=== PATIENT | female | born 1970 | race American Indian/Alaskan Native ===

== ENCOUNTER 2016-05-16 15:26 | Inpatient (IN) | payer MEDICARE ==
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
[2016-05-16 16:55] LABS: Basophils % (Auto) 0.4 % (0.0-1.8); Hematocrit 26.4 % (30.3-42.9); Hemoglobin 8.9 gm/dl (10.1-14.3); Mean Corpuscular HGB Conc 34 % (30-34); Mean Corpuscular Hemoglobin 28 pg (28-32); Mean Corpuscular Volume 84 fl (79-97); Platelet Count 273 K/mm3 (140-440); Red Blood Count 3.16 M/mm3 (3.65-5.03); Red Cell Distribution Width 16.5 % (13.2-15.2); White Blood Count 9.2 K/mm3 (4.5-11.0)
[2016-05-16 17:20] LABS: INR 1.01 (0.87-1.13)
[2016-05-16 17:30] LABS: Partial Thromboplastin Time 27.5 Sec. (24.2-36.6)
[2016-05-16 17:47] LABS: Alanine Aminotransferase 5 units/L (7-56); Albumin 3.2 g/dL (3.9-5); Albumin/Globulin Ratio 0.7 %; Alkaline Phosphatase 58 units/L (35-129); Anion Gap 28 mmol/L; BUN/Creatinine Ratio 4.36; Bilirubin,Total 0.3 mg/dL (0.1-1.2); Blood Urea Nitrogen 83 mg/dL (7-17); Carbon Dioxide 20 mmol/L (22-30); Chloride 92.6 mmol/L (98-107); Glucose 87 mg/dL (65-100); Sodium 137 mmol/L (137-145); Total Protein 7.5 g/dL (6.3-8.2)
[2016-05-17] MEDS ORDERED: BENADRYL IV ONE (00:59)
[2016-05-17] MEDS ORDERED: MORPHINE IV ONE (00:59)
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
[2016-05-17] MEDS ORDERED: TYLENOL PO PRN (02:05)
[2016-05-17] MEDS ORDERED: ULTRAM PO PRN ×2 (02:09→09:13)
--- NOTE | 2016-05-17 02:09 | History and Physical Report ---
History of Present Illness Chief complaint: missed dialysis History of present illness: 45 YO Female with HTN, CHF, ESRD on PD, HCV, RI, CAD S/P Stent placement presents to ED for evaluation. Pt states that she has not been able to tolerated her dialysis for the past 2 days. Pt states that she has severe abdominal pain when she attempts to do dialysis. She has been having some nausea and vomiting as well and has been unable to complete her dialysis sessions. Pt denies fever, chills, CP, Palpitations, Trauma, recent ill contacts, hematuria, urgency, back pain. Nephrology consulted in ED. ED Past Medical Hx - Past Medical History Hx Hypertension: Yes Hx Heart Attack/AMI: No Hx Congestive Heart Failure: Yes Hx Diabetes: No Hx Deep Vein Thrombosis: No Hx Liver Disease: No Hx Renal Disease: Yes (PD) Hx Sickle Cell Disease: No Hx Seizures: No Hx Asthma: No Hx COPD: No Additional medical history: HEP C,RI with Stent placement 2013,2014 - Surgical History Hx Coronary Stent: Yes Hx Pacemaker: No Hx Internal Defibrillator: No Additional Surgical History: Vas cath L chest - Social History Smoking Status: Former Smoker Substance Use Type: None Past History Past Medical History: acute RI, CAD, heart failure, hepatitis, hypertension, renal failure Past Surgical History: Other (Left chest permacath) Social history: single, lives with family. denies: smoking, alcohol abuse Family history: hypertension Medications and Allergies Allergies Allergy/AdvReac Type Severity Reaction Status Date / Time hydrocodone bitartrate Allergy Unknown Verified 02/14/14 13:22 [From Lortab] magnesium Allergy Unknown Verified 02/14/14 13:22 Penicillins Allergy Unknown Verified 02/14/14 13:22 Home Medications Medication Instructions Recorded Confirmed Last Taken Type Calcitriol [Rocaltrol] 0.5 mcg PO DAILY 10/29/14 10/29/14 10/28/14 History Calcium Acetate 667 mg PO QID 10/29/14 10/29/14 10/28/14 History Aspirin EC [Aspirin Enteric Coated 81 mg PO QDAY #30 tablet 11/11/14 Unknown Rx TAB] Carvedilol [Coreg] 3.125 mg PO DAILY #60 tablet 11/11/14 Unknown Rx Clopidogrel [Plavix] 75 mg PO DAILY #30 tablet 11/11/14 Unknown Rx Pantoprazole [Protonix TAB] 40 mg PO QDAY #30 tablet 11/11/14 Unknown Rx Sucralfate [Carafate] 1 gm PO Q6HR 30 Days 11/11/14 Unknown Rx Zolpidem [Ambien] 5 mg PO QHS PRN #5 tablet 11/11/14 Unknown Rx amLODIPine [Norvasc] 5 mg PO QDAY #30 tablet 11/11/14 Unknown Rx traMADol [Ultram 50 MG tab] 50 mg PO Q4H PRN #20 tablet 11/11/14 Unknown Rx Review of Systems All systems: negative Cardiovascular: shortness of breath Exam - Constitutional Vitals: Temp Pulse Resp BP Pulse Ox 98.6 F 59 L 18 152/116 100 05/16/16 15:46 05/16/16 15:46 05/16/16 15:46 05/16/16 15:46 05/16/16 15:46 General appearance: Present: mild distress - EENT Eyes: Present: PERRL ENT: hearing intact, clear oral mucosa - Neck Neck: Present: supple, normal ROM - Respiratory Respiratory effort: normal Respiratory: bilateral: diminished - Cardiovascular Heart Sounds: Present: S1 & S2. Absent: rub, click - Extremities Extremities: pulses symmetrical, No edema Extremity abnormal: edema Peripheral Pulses: within normal limits - Abdominal General gastrointestinal: Present: soft, non-tender, non-distended, normal bowel sounds Female genitourinary: Present: normal - Integumentary Integumentary: Present: clear, warm, dry - Musculoskeletal Musculoskeletal: gait normal, strength equal bilaterally - Psychiatric Psychiatric: appropriate mood/affect, intact judgment & insight - Neurologic Neurologic: CNII-XII intact, moves all extremities Results - Labs CBC & Chem 7: 05/16/16 16:39 05/16/16 16:33 Labs: Abnormal lab results 05/16/16 05/16/16 Range/Units 16:33 16:39 RBC 3.16 L (3.65-5.03) M/mm3 Hgb 8.9 L (10.1-14.3) gm/dl Hct 26.4 L (30.3-42.9) % RDW 16.5 H (13.2-15.2) % Harvey % (Auto) 8.4 H (0.0-7.3) % Chloride 92.6 L (98-107) mmol/L Carbon Dioxide 20 L (22-30) mmol/L BUN 83 H (7-17) mg/dL Creatinine 19.0 H (0.7-1.2) mg/dL ALT 5 L (7-56) units/L Albumin 3.2 L (3.9-5) g/dL Assessment and Plan - Patient Problems (1) Peritonitis Current Visit: No Status: Suspected Plan to address problem: Empiric Abx therapy, supportive care, serial abdominal exam (2) ESRD (end stage renal disease) on dialysis Current Visit: Yes Status: Chronic Plan to address problem: Dialysis as per Nephrology team, (3) Accelerated hypertension Current Visit: No Status: Acute Plan to address problem: monitor bp q shift, resume home medication, hydralazine prn (4) Anemia Current Visit: No Status: Chronic Plan to address problem: HGB stable, no transfusion at this time. (5) History of hepatitis C Current Visit: No Status: Chronic Plan to address problem: continue current care, outpatient GI f/u. (6) DVT prophylaxis Current Visit: No Status: Acute
--- NOTE | 2016-05-17 03:06 | Admit Criteria Form ---
Admission Criteria Documentation: RENAL FAILURE, CHRONIC Clinical Indications for Admission to Inpatient Care (Place 'X' for any and all applicable criteria): Admission is indicated for ANY ONE of the following (1)(2)(3)(4)(5): [X ]I. Inpatient admission required rather than observation care (Use Renal Failure, Chronic: Observation Care Criteria as appropriate) because of ANY ONE of the following: [ ]a) Volume overload or uremic symptoms (eg, clinically significant pulmonary edema, hypertension, pericarditis, acidosis) too severe for, or not responsive (eg, for over 24 hours) to emergency department or observation care dialysis or treatment regimen (11) [ ]b) Hemodynamic instability that is severe or persistent [ ]c) Respiratory distress that is severe or persistent (11) [ ]d) Clinically significant electrolyte abnormality that requires inpatient care (eg,hyperkalemia with severe ECG findings)[B] [ ]e) Supplement O2 or respiratory therapy for over 24hrs that is performable only in acute inpatient setting [ ]f) Continuous IV infusion of anticoagulation, platelet inhibitor, vasoactive, or Antiarrhythmic medication (15), [ ]g) Pulmonary artery catheter monitoring [ ]h) Temporary pacemaker placement [ ]i) Emergent pericardiocentesis [ X]j) Other condition, treatment or monitoring requiring inpatient admission [ ]II. Unexplained syncope [A] [ ]III. Recurrent seizures [ ]IV. Severe infections not treatable in outpatient setting (eg, peritonitis)(9 ) [ ]V. Cardiac arrhythmias of immediate concern [ ]. Encephalopathy [ ]VII.Bleeding abnormalities (eg, platelet dysfunction) with active (eg, gastrointestinal) bleeding Extended stay beyond goal length of stay may be needed for (3)(4)(35)(36): [ ]a) Continuing uremic complications [ ]b) Comorbidities or complications The original [email or web address] content created by [email or web address] has been revised. The portions of the content which have been revised are identified through the use of italic text or in bold, and [email or web address] has neither reviewed nor approved the modified material. All other unmodified content is copyright [email or web address]. Please see references footnoted in the original [facility] [facility] edition 2016 Admission Criteria Met: Yes
--- NOTE | 2016-05-17 08:07 | XRay Report ---
CHEST 2 VIEWS INDICATION: Chest pain. COMPARISON: 10/28/2014. FINDINGS: PA and lateral chest radiographs demonstrate stable cardiomediastinal silhouette, though slight ascending aortic prominence again noted. Left coronary artery calcifications. Clear lungs. Intact bones. Probable cholecystectomy clips. CONCLUSION: Left coronary artery calcifications and clear lungs. Clinical/cardiology correlation may be obtained, as appropriate. Thank you for the opportunity to participate in this patient's care.
[2016-05-17] MEDS: LEVAQUIN 500MG/100ML 100 ML IV SCH (09:37)
[2016-05-17] MEDS: MORPHINE IV PRN ×4 (09:37→19:51)
[2016-05-17] MEDS: NORVASC PO SCH (09:38)
[2016-05-17] MEDS: CARAFATE PO SCH ×3 (09:38→19:51)
[2016-05-17] MEDS: PROTONIX PO SCH (09:38)
[2016-05-17] MEDS: HALFPRIN EC PO SCH (09:38)
[2016-05-17] MEDS: COREG PO SCH (09:38)
[2016-05-17] MEDS: PLAVIX PO SCH ×2 (09:38→12:50)
--- NOTE | 2016-05-17 09:42 | Consultation ---
History of Present Illness - Reason for Consult Consult date: 05/17/16 end stage renal disease, other (Peritonitis) - History of Present Illness Patient is a 45 YO AAF with history significant for HTN, CHF, ESRD on PD, HCV, CAD S/P Stent placement and recurrent peritonitis came to the ED for evaluation of 2 days h/o diffuse abd. pain. Pt states that the abdominal pain is constant and gets intensified with attempted peritoneal dialysis. Because of the pain she couldn't do dialysis for the past 2 days. She also reports having nausea and vomiting. Patient denies fever, chills, CP, Palpitations, hematuria, jaundice, diarrhea, melena or rectal bleeding. Patient had several similar admissions in the past. Past History Past Medical History: acute DE, CAD, heart failure, hepatitis, hypertension, renal failure Past Surgical History: Other (Left chest permacath) Social history: single, lives with family. denies: smoking, alcohol abuse Family history: hypertension Medications and Allergies Allergies Allergy/AdvReac Type Severity Reaction Status Date / Time hydrocodone bitartrate Allergy Unknown Verified 02/14/14 13:22 [From Lortab] magnesium Allergy Unknown Verified 02/14/14 13:22 Penicillins Allergy Unknown Verified 02/14/14 13:22 tramadol AdvReac Itching Verified 05/17/16 09:14 Home Medications Medication Instructions Recorded Confirmed Last Taken Type Calcium Acetate 667 mg PO QID 10/29/14 05/17/16 10/28/14 History Aspirin EC [Aspirin Enteric Coated 81 mg PO QDAY #30 tablet 11/11/14 05/17/16 Unknown Rx TAB] Carvedilol [Coreg] 3.125 mg PO DAILY #60 tablet 11/11/14 05/17/16 Unknown Rx Pantoprazole [Protonix TAB] 40 mg PO QDAY #30 tablet 11/11/14 05/17/16 Unknown Rx Sucralfate [Carafate] 1 gm PO Q6HR 30 Days 11/11/14 05/17/16 Unknown Rx Zolpidem [Ambien] 5 mg PO QHS PRN #5 tablet 11/11/14 05/17/16 Unknown Rx amLODIPine [Norvasc] 5 mg PO QDAY #30 tablet 11/11/14 05/17/16 Unknown Rx Brilinta 90 mg PO BID 05/17/16 05/17/16 Unknown History Active Meds: Active Medications Acetaminophen (Tylenol) 650 mg PO Q4H PRN PRN Reason: Pain MILD(1-3)/Fever >100.5/LOVETT Amlodipine Besylate (Norvasc) 5 mg PO QDAY [facility] Last Admin: 05/17/16 09:38 Dose: 5 mg Aspirin (Halfprin Ec) 81 mg PO QDAY [facility] Last Admin: 05/17/16 09:38 Dose: 81 mg Calcitriol (Rocaltrol) 0.5 mcg PO DAILY [facility] Calcium Acetate (Phoslo) 667 mg PO QID [facility] Last Admin: 05/17/16 09:38 Dose: 667 mg Carvedilol (Coreg) 3.125 mg PO DAILY [facility] Last Admin: 05/17/16 09:38 Dose: 3.125 mg Clopidogrel Bisulfate (Plavix) 75 mg PO DAILY [facility] Levofloxacin/Dextrose (Levaquin 500mg/100ml) 100 mls @ 100 mls/hr IV Q48HR [facility] PRN Reason: Protocol Last Admin: 05/17/16 09:37 Dose: 100 mls/hr Morphine Sulfate (Morphine) 2 mg IV Q4H PRN PRN Reason: Pain , Severe (7-10) Last Admin: 05/17/16 09:37 Dose: 2 mg Pantoprazole Sodium (Protonix) 40 mg PO QDAY [facility] Last Admin: 05/17/16 09:38 Dose: 40 mg Sucralfate (Carafate) 1 gm PO Q6HR [facility] Last Admin: 05/17/16 09:38 Dose: 1 gm Tramadol HCl (Ultram) 50 mg PO Q4H PRN PRN Reason: Pain, Moderate (4-6) Zolpidem Tartrate (Ambien) 5 mg PO QHS PRN PRN Reason: Sleep Review of Systems Constitutional: weight loss, no weight gain, no fever, no chills, no weakness Ears, nose, mouth and throat: no sinus pressure, no sinus pain Breasts: deferred Cardiovascular: no orthopnea, no edema, no lightheadedness, no shortness of breath Respiratory: no cough, no shortness of breath Gastrointestinal: abdominal pain, nausea, vomiting, no diarrhea, no melena, no hematochezia Genitourinary Female: no hematuria Rectal: no bleeding Musculoskeletal: no neck stiffness Integumentary: no rash, no sores, no wounds, no jaundice Neurological: no head injury, no paralysis, no weakness, no seizures, no syncope Psychiatric: anxiety Hematologic/Lymphatic: no easy bleeding Exam - Vital Signs Vital signs: Vital Signs Temp Pulse Resp BP Pulse Ox 98.6 F 59 L 18 152/116 100 05/16/16 15:46 05/16/16 15:46 05/16/16 15:46 05/16/16 15:46 05/16/16 15:46 - General Appearance General appearance: well-developed, well-nourished, other (no distress) EENT: PERRL, mucous membranes moist, hearing intact, vision intact Neck: Present: neck supple, trachea midline Respiratory: Clear to Ascultation Heart: regular, S1S2, no murmurs Gastrointestinal: Present: normoactive bowel sounds, tenderness, other (left sided PD catheter noted). Absent: distended Integumentary: no rash, warm and dry Neurologic: no focal deficit, no asterixis, alert and oriented x3, CN 3-12 intact Musculoskeletal: Present: other (no edema) Psychiatric: mood/affect appropriate, cooperative Results - Lab Results 05/16/16 16:39 05/16/16 16:33 Most recent lab results Calcium 9.0 mg/dL (8.4-10.2) 05/16/16 16:33 Assessment and Plan - Patient Problems (1) Peritonitis (acute) generalized Current Visit: Yes Status: Acute Plan to address problem: PD fluid cell count and culture ordered. Empiric IV Vancomycin. (2) ESRD on peritoneal dialysis Current Visit: Yes Status: Acute Plan to address problem: Will do PD with manual exchanges. (3) Anemia in end-stage renal disease Current Visit: Yes Status: Acute Plan to address problem: Epogen. (4) Hypertension Current Visit: Yes Status: Chronic Qualifiers: Hypertension type: essential hypertension Qualified Code(s): I10 - Essential (primary) hypertension
--- NOTE | 2016-05-17 09:48 | XRay Report ---
ABDOMEN RADIOGRAPHS: INDICATION: Abdominal pain. COMPARISON: 11/10/2014 CT. FINDINGS: Frontal supine and upright abdominal radiographs, 3 images, demonstrate nonobstructive bowel gas pattern with usual, mild colonic stool. Cholecystectomy clips, faint approximately 3 cm fibroid related density in the left hemipelvis and a probable dialysis catheter now noted coiled in the left lower quadrant. Small left hemipelvic phlebolith. No focal suspicious calcifications, pneumatosis or pneumoperitoneum. Clear visualized lung bases. Sclerosis along iliac aspects of bilateral SI joints. CONCLUSION: No acute abdominal radiographic abnormality with various other incidental findings, as above. Please correlate. Thank you for the opportunity to participate in this patient's care.
[2016-05-17] MEDS ORDERED: BENADRYL PO PRN (09:55)
[2016-05-17] MEDS ORDERED: ROCALTROL PO SCH (10:00)
[2016-05-17] MEDS ORDERED: PHOSLO PO SCH (10:00)
[2016-05-17] MEDS ORDERED: VANCOMYCIN PHARMACY TO DOSE IV SCH (11:00)
[2016-05-17] MEDS ORDERED: PROCRIT SUB-Q ONE (13:00)
[2016-05-17] MEDS ORDERED: VANCOMYCIN VIAL 1,250 MG in NACL 0.9% 250ML 250 ML IV ONE (13:00)
--- NOTE | 2016-05-17 13:26 | Progress Note ---
Assessment and Plan Assessment and plan: Patient is a 45 YO AAF with history significant for HTN, CHF, ESRD on PD, HCV, CAD S/P Stent placement and recurrent peritonitis came to the ED for evaluation of 2 days h/o diffuse abd. pain. Pt states that the abdominal pain is constant and gets intensified with attempted peritoneal dialysis. Because of the pain she couldn't do dialysis for the past 2 days. She also reports having nausea and vomiting. Patient denies fever, chills, CP, Palpitations, hematuria, jaundice, diarrhea, melena or rectal bleeding. Patient had several similar admissions in the past. * Abdominal Pain R/O Peritonitis * ESRD * Accelerated Hypertension * Moderate Protien calorie malnutrition * Anemia * History of hepatitis C * Atypical Chest pain Plan: * Empiric Abx with Vancomycin * Discuss with Nephrology, patient has been seen multiple times at different hospital and is familiar to the Microbial Specialist. will obtain records. * Patient has not had any fever, doubt peritonitis * Hgb remains stable * pain control * if culture negative will discharge in am and have patient follow with personal mri technician for consideration of continued vancomycin or conversion to hemodialysis. History Interval history: Patient seen and examined this morning continues to complain of abdominal pain. Denies any chest pain, nausea, vomiting, diarrhea No fever noted blood pressure controlled No adverse events reported to me by nursing staff Hospitalist Physical - Physical exam Narrative exam: VITAL SIGNS: Reviewed. GENERAL: The patient appeared well nourished and normally developed. Vital signs as documented. HEAD: No signs of head trauma. EYES: Pupils are equal. Extraocular motions intact. EARS: Hearing grossly intact. MOUTH: Oropharynx is normal. NECK: No adenopathy, no JVD. CHEST: Chest with clear breath sounds bilaterally. No wheezes, rales, or rhonchi. CARDIAC: Regular rate and rhythm. S1 and S2, without murmurs, gallops, or rubs. VASCULAR: No Edema. Peripheral pulses normal and equal in all extremities. ABDOMEN: Soft, without detectable tenderness. No sign of distention. No rebound or guarding, and no masses palpated. Bowel Sounds normal. MUSCULOSKELETAL: Good range of motion of all major joints. Extremities without clubbing, cyanosis or edema. NEUROLOGIC EXAM: Alert and oriented x 3. No focal sensory or strength deficits. Speech normal. Follows commands. PSYCHIATRIC: Mood normal. SKIN: No rash or lesions. - Constitutional Vitals: Temp Pulse Resp BP Pulse Ox 97.8 F 104 H 20 165/95 98 05/17/16 08:45 05/17/16 08:45 05/17/16 08:45 05/17/16 08:45 05/17/16 08:45 General appearance: Present: mild distress Results - Labs CBC & Chem 7: 05/16/16 16:39 05/16/16 16:33 Labs: Laboratory Last Values WBC 9.2 K/mm3 (4.5-11.0) 05/16/16 16:39 RBC 3.16 M/mm3 (3.65-5.03) L 05/16/16 16:39 Hgb 8.9 gm/dl (10.1-14.3) L 05/16/16 16:39 Hct 26.4 % (30.3-42.9) L 05/16/16 16:39 MCV 84 fl (79-97) 05/16/16 16:39 MCH 28 pg (28-32) 05/16/16 16:39 MCHC 34 % (30-34) 05/16/16 16:39 RDW 16.5 % (13.2-15.2) H 05/16/16 16:39 Plt Count 273 K/mm3 (140-440) 05/16/16 16:39 Lymph % (Auto) 20.7 % (13.4-35.0) 05/16/16 16:39 [place] % (Auto) 8.4 % (0.0-7.3) H 05/16/16 16:39 Eos % (Auto) 2.0 % (0.0-4.3) 05/16/16 16:39 Baso % (Auto) 0.4 % (0.0-1.8) 05/16/16 16:39 Lymph # 1.9 K/mm3 (1.2-5.4) 05/16/16 16:39 [place] # 0.8 K/mm3 (0.0-0.8) 05/16/16 16:39 Eos # 0.2 K/mm3 (0.0-0.4) 05/16/16 16:39 Baso # 0.0 K/mm3 (0.0-0.1) 05/16/16 16:39 Seg Neutrophils % 68.5 % (40.0-70.0) 05/16/16 16:39 Seg Neutrophils # 6.3 K/mm3 (1.8-7.7) 05/16/16 16:39 PT 13.2 Sec. (12.2-14.9) 05/16/16 16:39 INR 1.01 (0.87-1.13) 05/16/16 16:39 APTT 27.5 Sec. (24.2-36.6) 05/16/16 16:39 Sodium 137 mmol/L (137-145) 05/16/16 16:33 Potassium 4.0 mmol/L (3.6-5.0) 05/16/16 16:33 Chloride 92.6 mmol/L (98-107) L 05/16/16 16:33 Carbon Dioxide 20 mmol/L (22-30) L 05/16/16 16:33 Anion Gap 28 mmol/L 05/16/16 16:33 BUN 83 mg/dL (7-17) H 05/16/16 16:33 Creatinine 19.0 mg/dL (0.7-1.2) H 05/16/16 16:33 Estimated GFR 2 ml/min 05/16/16 16:33 BUN/Creatinine Ratio 4.36 % 05/16/16 16:33 Glucose 87 mg/dL (65-100) 05/16/16 16:33 Calcium 9.0 mg/dL (8.4-10.2) 05/16/16 16:33 Total Bilirubin 0.3 mg/dL (0.1-1.2) 05/16/16 16:33 AST 14 units/L (5-40) 05/16/16 16:33 ALT 5 units/L (7-56) L 05/16/16 16:33 Alkaline Phosphatase 58 units/L (35-129) 05/16/16 16:33 Troponin T < 0.010 ng/mL (0.00-0.029) 05/16/16 16:33 Total Protein 7.5 g/dL (6.3-8.2) 05/16/16 16:33 Albumin 3.2 g/dL (3.9-5) L 05/16/16 16:33 Albumin/Globulin Ratio 0.7 % 05/16/16 16:33
[2016-05-17] MEDS: PHOSLO PO SCH ×3 (14:12→21:43)
[2016-05-17] MEDS: DIANEAL LOW CALCIUM W/2.5% DEXTROSE IP SCH ×2 (14:59→19:52)
[2016-05-17 20:42] LABS: Basophils Body Fluid 0 %; Eosinophils Body Fluid 0 %; Lymphocytes BF 0 %; Monocytes Body Fluid 0 %; Reactive Lymph Body Fluid 0 %; Seg Neutrophils Body Fluid 0 %
[2016-05-17] MEDS: BRILINTA PO SCH (21:43)
[2016-05-17] MEDS: AMBIEN PO PRN (22:41)
[2016-05-18] MEDS ORDERED: ZOFRAN IV PRN (00:37)
[2016-05-18] MEDS: CARAFATE PO SCH ×4 (01:09→18:01)
[2016-05-18] MEDS: MORPHINE IV PRN ×4 (01:09→18:57)
[2016-05-18] MEDS: BENADRYL IV PRN ×4 (01:09→18:58)
[2016-05-18] MEDS: DIANEAL LOW CALCIUM W/2.5% DEXTROSE IP SCH ×4 (01:10→18:01)
[2016-05-18 07:52] LABS: Albumin 3.5 g/dL (3.9-5); Albumin/Globulin Ratio 0.9 %; BUN/Creatinine Ratio 4.38; Bilirubin,Total 0.4 mg/dL (0.1-1.2); Calcium 9.7 mg/dL (8.4-10.2); Chloride 91.7 mmol/L (98-107); Potassium 3.7 mmol/L (3.6-5.0); Total Protein 7.4 g/dL (6.3-8.2)
[2016-05-18] MEDS: PHOSLO PO SCH ×3 (08:00→18:01)
--- NOTE | 2016-05-18 08:08 | Progress Note ---
Assessment and Plan - Patient Problems (1) Peritonitis (acute) generalized Current Visit: Yes Status: Acute Plan to address problem: PD fluid cell count not suggestive of Peritonitis. PD fluid culture is negative so far. Empiric IV Vancomycin. PD catheter position appears to be ok. (2) ESRD on peritoneal dialysis Current Visit: Yes Status: Acute Plan to address problem: Patient is able to tolerate manual PD. (3) Anemia in end-stage renal disease Current Visit: Yes Status: Acute Plan to address problem: Epogen. (4) Hypertension Current Visit: Yes Status: Chronic Qualifiers: Hypertension type: essential hypertension Qualified Code(s): I10 - Essential (primary) hypertension Plan to address problem: BP controlled. Subjective Date of service: 05/18/16 Interval history: Patient continues to have abd pain. Objective - Vital Signs Vital signs: Vital Signs - 12hr 05/17/16 23:58 Temperature 99.0 F Pulse Rate [ 105 H From Monitor] Respiratory 20 Rate Blood Pressure 133/93 [Left Arm] O2 Sat by Pulse 99 Oximetry - General Appearance General appearance: well-developed, well-nourished, other (no distress) EENT: mucous membranes moist, hearing intact, vision intact Neck: no carotid bruit, supple Respiratory: Present: Clear to Ascultation Cardiology: regular, S1S2, no murmurs Gastrointestinal: normoactive bowel sounds, tenderness (diffuse), no distended, no guarding, other (left sided PD catheter noted) Integumentary: no rash, warm and dry Neurologic: no focal deficit, no asterixis, alert and oriented x3, CN 3-12 intact Musculoskeletal: other (no edema) Psychiatric: mood/affect appropriate, cooperative - Lab 05/16/16 16:39 05/18/16 07:04 Most recent lab results Calcium 9.7 mg/dL (8.4-10.2) 05/18/16 07:04
[2016-05-18] MEDS: BRILINTA PO SCH (10:20)
[2016-05-18] MEDS: NORVASC PO SCH (11:12)
[2016-05-18] MEDS: COREG PO SCH (11:13)
[2016-05-18] MEDS: PROTONIX PO SCH (11:13)
[2016-05-18] MEDS: HALFPRIN EC PO SCH (11:13)
--- NOTE | 2016-05-18 15:03 | Discharge Summary ---
Providers - Providers Date of Admission: 05/17/16 02:05 Date of discharge: 05/18/16 Attending physician: JUAN HERNANDEZ MD 05/17/16 09:32 Consult to Physician [CONS] Routine Consulting Provider: KYAW YOUNG Reason For Exam: esrd has not been able to do peritoneal dialysis Place consult to:: DR. YOUNG Notified:: DR. YOUNG Phone number called:: [facility]HOU[facility] Was contact made?: Yes If yes, spoke with:: DR. YOUNG Time called:: 10:29 Comment:: PAUTLETTE AWARE Primary care physician: [employer]BER Hospitalization Reason for admission: abdominal pain Condition: Stable Hospital course: Patient is a 45 YO AAF with history significant for HTN, CHF, ESRD on PD, HCV, CAD S/P Stent placement and recurrent peritonitis came to the ED for evaluation of 2 days h/o diffuse abd. pain. Pt states that the abdominal pain is constant and gets intensified with attempted peritoneal dialysis. Because of the pain she couldn't do dialysis for the past 2 days. She also reports having nausea and vomiting. Patient denies fever, chills, CP, Palpitations, hematuria, jaundice, diarrhea, melena or rectal bleeding. Patient had several similar admissions in the past. Patient to the hospital exchange of peritoneal dialysis port. Was able to tolerate dialysis here in the hospital. Fluid was sent preliminary cultures not indicative of peritonitis. Hypotension due to receive a dose of vancomycin. According to the ec teacher next dose will be in 7 days if there is any need to continue. Patient is stable for discharge at this time. Awaiting setup peritoneal dialysis [facility] equipments. * Abdominal Pain-no evidence of peritonsillar * ESRD-on peritoneal dialysis-with malfunction * Accelerated Hypertension * Moderate Protien calorie malnutrition * Anemia * History of hepatitis C * Atypical Chest pain-likely costochondritis Disposition: DISCHARGED TO HOME OR SELFCARE Time spent for discharge: 35 mins Core Measure Documentation - Palliative Care Palliative Care/ Comfort Measures: Not Applicable - Core Measures Any of the following diagnoses?: none - VTE Discharge Requirements Deep Vein Thrombosis/Pulmonary Embolism Present on Admission: No Exam - Physical Exam Narrative exam: VITAL SIGNS: Reviewed. GENERAL: The patient appeared well nourished and normally developed. Vital signs as documented. HEAD: No signs of head trauma. EYES: Pupils are equal. Extraocular motions intact. EARS: Hearing grossly intact. MOUTH: Oropharynx is normal. NECK: No adenopathy, no JVD. CHEST: Chest with clear breath sounds bilaterally. No wheezes, rales, or rhonchi. CARDIAC: Regular rate and rhythm. S1 and S2, without murmurs, gallops, or rubs. VASCULAR: No Edema. Peripheral pulses normal and equal in all extremities. ABDOMEN: Soft, without detectable tenderness. No sign of distention. No rebound or guarding, and no masses palpated. Bowel Sounds normal. MUSCULOSKELETAL: Good range of motion of all major joints. Extremities without clubbing, cyanosis or edema. NEUROLOGIC EXAM: Alert and oriented x 3. No focal sensory or strength deficits. Speech normal. Follows commands. PSYCHIATRIC: Mood normal. SKIN: No rash or lesions. - Constitutional Vitals: Temp Pulse Resp BP Pulse Ox 98.3 F 110 H 18 120/82 99 05/18/16 12:00 05/18/16 12:00 05/18/16 12:00 05/18/16 12:00 05/18/16 12:00 Plan Activity: advance as tolerated, fall precautions Diet: low fat, renal Special Instructions: record daily BP diary Additional Instructions: Follow with Neprhologist. They will re-evalute if continue vancomycin is needed Follow up with: PRIMARY CARE, [Primary Care Provider] - 3-5 Days Prescriptions: Levofloxacin [Levaquin] 750 mg PO Q48H #3 tablet
[2016-05-19] MEDS: MORPHINE IV PRN ×3 (00:52→12:30)
[2016-05-19] MEDS: BRILINTA PO SCH ×2 (00:53→12:45)
[2016-05-19] MEDS: CARAFATE PO SCH ×3 (00:53→12:36)
[2016-05-19] MEDS: AMBIEN PO PRN (00:54)
[2016-05-19] MEDS: BENADRYL IV PRN ×3 (00:54→12:33)
[2016-05-19] MEDS: PHOSLO PO SCH ×4 (00:55→12:32)
[2016-05-19] MEDS: DIANEAL LOW CALCIUM W/2.5% DEXTROSE IP SCH ×3 (00:59→12:48)
--- NOTE | 2016-05-19 08:12 | Progress Note ---
Assessment and Plan - Patient Problems (1) Peritonitis (acute) generalized Current Visit: Yes Status: Acute Plan to address problem: No definitive e/o Peritonitis at this time. Empiric Vancomycin was given. Symptoms are better. (2) ESRD on peritoneal dialysis Current Visit: Yes Status: Acute Plan to address problem: Continue APD per prescription. Patient is going home today. (3) Anemia in end-stage renal disease Current Visit: Yes Status: Acute Plan to address problem: Epogen. (4) Hypertension Current Visit: Yes Status: Chronic Qualifiers: Hypertension type: essential hypertension Qualified Code(s): I10 - Essential (primary) hypertension Subjective Date of service: 05/19/16 Interval history: Patient is feeling lot better today and wants to go home. Objective - General Appearance General appearance: well-developed, well-nourished, other (no distress) EENT: PERRL, mucous membranes moist, hearing intact, vision intact Neck: no carotid bruit, supple Respiratory: Present: Clear to Ascultation Cardiology: regular, S1S2, no murmurs Gastrointestinal: normoactive bowel sounds, no tenderness, no distended, no guarding, other (left sided PD catheter noted) Neurologic: no focal deficit, no asterixis, alert and oriented x3, CN 3-12 intact Musculoskeletal: other (no edema) Psychiatric: mood/affect appropriate, cooperative - Lab 05/16/16 16:39 05/18/16 07:04 Most recent lab results Calcium 9.7 mg/dL (8.4-10.2) 05/18/16 07:04
[2016-05-19] MEDS ORDERED: LEVAQUIN PO SCH (12:00)
[2016-05-19] MEDS: HALFPRIN EC PO SCH (12:32)
[2016-05-19] MEDS: NORVASC PO SCH (12:33)
[2016-05-19] MEDS: COREG PO SCH (12:34)
[2016-05-19 12:35] VITALS: BP 135/94
[2016-05-19] MEDS: PROTONIX PO SCH (12:45)
[2016-05-19] MEDS: LEVAQUIN 500MG/100ML 100 ML IV SCH (16:25)
== END 2016-05-19 16:21 | disposition home or self-care (01) | DRG 919 ==
LOC: ED 15:26 → 3A 05-17 02:05 → EEVIPCON 05-17 02:05 → 3A 05-17 04:44
PROVIDERS: ADMIT Internal Medicine; ATTEND Internal Medicine
DX: T85.611A Breakdown (mechanical) of intraperitoneal dialysis catheter, initial encounter (principal); N18.6 End stage renal disease; E44.0 Moderate protein-calorie malnutrition; I13.2 Hypertensive heart and chronic kidney disease with heart failure and with stage 5 chronic kidney disease, or end stage renal disease; B18.2 Chronic viral hepatitis C; M94.0 Chondrocostal junction syndrome [Tietze]; I25.10 Atherosclerotic heart disease of native coronary artery without angina pectoris; D63.1 Anemia in chronic kidney disease; I50.9 Heart failure, unspecified; I25.2 Old myocardial infarction; Z95.5 Presence of coronary angioplasty implant and graft; Z87.891 Personal history of nicotine dependence; Z98.890 Other specified postprocedural states; Z79.899 Other long term (current) drug therapy; Z79.82 Long term (current) use of aspirin; Z82.49 Family history of ischemic heart disease and other diseases of the circulatory system; Z88.8 Allergy status to other drugs, medicaments and biological substances; Z88.0 Allergy status to penicillin; Z88.5 Allergy status to narcotic agent; Z68.28 Body mass index [BMI] 28.0-28.9, adult; I95.2 Hypotension due to drugs; T36.8X5A Adverse effect of other systemic antibiotics, initial encounter; Y92.239 Unspecified place in hospital as the place of occurrence of the external cause
CPT/HCPCS: 36415; 71020; 74020; 80053; 80202; 84484; 85025; 85610; 85730; 87116; 89051; 93005; 93010; 96374; 96375; J0885; J1200; J1956; J2270; J3370; J7050

== ENCOUNTER 2017-05-21 02:09 | Emergency (ER) | payer MEDICARE | END 2017-05-21 04:13 | disposition left against medical advice (07) | LOC: ED 02:09 | DX: R07.9 Chest pain, unspecified (principal); Z53.21 Procedure and treatment not carried out due to patient leaving prior to being seen by health care provider ==